=== PATIENT | female | born 1940 | race Caucasian/White ===

== ENCOUNTER 2025-06-19 15:45 | Outpatient (AMB) | payer OTHER, SELFPAY ==
--- NOTE | 2025-06-19 15:55 | MHC.OFFVIS ---
Intake Visit Reasons: 6mnth sz Allergies No Known Allergies Allergy (Verified 06/15/25 11:06) HPI Comments Details: 85 yo RH woman with diagnoses of diabetes mellitus, hypertension, s/p left CEA, dementia, and seizure disorder. She carried these diagnoses for years. She used to see Dr. Rowley and needed a new neurologist. Her seizures used to happen at night causing loud noise and unresponsiveness. She had been to ER with these episodes but not lately. She was living with family. She did not drive. She is presenting with dizziness following a potential fall. She did not experience any loss of consciousness during the event and was able to get up independently. Her sister confirmed this account. The dizziness may be linked to medication mismanagement, as it was discovered that she might have taken extra doses of her prescribed medications during a period when her sister was away. Additionally, the patient has a persistently poor diet focused on sweets, with limited nutritional intake, which may contribute to her symptoms. [facility] Medical History (Updated 06/19/25 @ 15:58 by Pepito Roberson MD) Seizure Alzheimer disease Hypothyroidism (acquired) Hyperlipemia Diabetes mellitus HTN (hypertension) Review of Systems Narrative - Neurological: Reports feeling lightheaded, denies loss of consciousness. Physical Exam Neuro Other: Mental Status: Alert and oriented to person, place, and time. Normal attention. Normal spontaneous speech, fluency, and comprehension. No obvious issues with mood and memory. Affect is appropriate. Cranial Nerves: CN II: Visual brush full to confrontation, visual acuity intact. CN III, IV, : Pupils equal, round, reactive to light and accommodation. Extraocular movements are normal. CN V: Facial sensation is normal. CN VII: Facial movements symmetrical. CN VIII: Hearing intact to bedside conversation is normal. CN IX, X: Palate elevates symmetrically. CN XI: Shoulder shrug and head turn symmetrical. CN XII: Tongue midline without atrophy or fasciculations. Motor: Bulk and tone normal in all extremities. No significant muscle weakness in arms and legs. No drift. Extrapyramidal: Full facial expressions and blinking. No rigidity. Movements are appropriate with no tremor or abnormality. Speech: Normal; no dysarthria or tremor. 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 Alzheimer dementia 2. Seizure disorder 3. Recent fall that may or may not be related to seizures. She might have taken some extra doses of medicines contributing to dizziness and fall. Recommendations 1. Family was being attention to her medicines but she was not following usual instructions. For example, she did not want to change her habit of eating mostly sweets or junk food. 2. Levetiracetam 500 mg twice a day 3. Donepezil 10 mg a day Medications: Refilled donepezil 10 mg PO BEDTIME 90 tabs 1RF levetiracetam 500 mg PO Q12H 180 tabs 1RF Coding Level of Care Code Est Pt Level 4 (58227) Diagnoses Seizure disorder G40.909 Alzheimer disease G30.9; F02.80
--- OUTSIDE RECORDS SUMMARY | 2025-06-19 20:00 | XMS_ITS | Clinical Summary ---
Author Organization [facility] Address [address] [place] [address] Care Team Providers Care Spinning Supervisor Name Role Phone Sakshi Gregorio DO Primary Care P rovider Social History Tobacco Use Types Packs/Day Years Used Date Smoking Tobacco: Never Assessed Sex and Gender Information Value Date Recorded Sex Assigned at Not on file Gender Identity Not on file Sexual Orientation Not on file Job Start Date Occupation Industry Not on file Not on file Not on file Plan of Treatment Health Maintenance Due Date Last Done Comments COVID-19 Vaccine (#1) 1942 Depression Screening 1954 Preventative Health Evaluation 02/19/1960 DTap / Tdap / Td (1 - Tdap) 1961 Shingrix-Zoster Vaccine (1 of 2) 02/19/1992 Fall Risk Assessment 2007 Osteoporosis Screening (DEXA Scan) 2007 Pneumococcal Vaccine (1 of 1 - PCV) 2007 RSV Adult > 60+ Yrs or Pregn ant (1 - 1-dose 75+ series) 2017 Influenza Vaccine (#1) 2025 Hepatitis B Vaccines Aged Out No long er eligible based on patient's age to complete this topic RSV Ped < 20 months Aged Out No longe r eligible based on patient's age to complete this topic Care Teams Spinning Supervisor Relationship Specialty Start Date End Date Sakshi Gregorio DO PCP - General Student Support Services Director 07/23/20
== END 2025-06-19 16:03 | disposition home or self-care (01) ==
LOC: HO.HSM 15:45
PROVIDERS: PCP Internal Medicine; Referring Provider Internal Medicine; Visit Provider Psychiatry & Neurology Neurology
DX: G40.909 Epilepsy, unspecified, not intractable, without status epilepticus (principal); G30.9 Alzheimer's disease, unspecified; F02.80 Dementia in other diseases classified elsewhere, unspecified severity, without behavioral disturbance, psychotic disturbance, mood disturbance, and anxiety
CPT/HCPCS: 99214